=== PATIENT | male | born 1950 | race Caucasian/White ===

== ENCOUNTER 2023-07-29 12:04 | Emergency (ER) | payer SELFPAY ==
[2023-07-29 12:11] VITALS: BP 90/51; PULSE 62; RESP 18; TEMP 36.3; O2SAT 95; BMI 19.1
--- NOTE | 2023-07-29 12:46 | CTR_ITS ---
PROCEDURE INFORMATION: Exam: CT Head Without And With Contrast Exam date and time: 07/29/2023 3:03 PM Age: 72 years old Clinical indication: Pain; Headache; Additional info: Severe headache TECHNIQUE: Imaging protocol: Computed tomography of the head without and with contrast. Radiation optimization: All CT scans at this facility use at least one of these dose optimization techniques: automated exposure control; mA and/or kV adjustment per patient size (includes targeted exams where dose is matched to clinical indication); or iterative reconstruction. Contrast material: OMNI 350; Contrast volume: 100 ml; Contrast route: INTRAVENOUS (IV); COMPARISON: CT neck w con* [id number] 07/29/2023 3:03 PM RADIATION DOSE METRICS: Total DLP (mGy-cm): 2047 FINDINGS: Brain: No evidence of intra-axial or extra-axial hemorrhage. No evidence of abnormal enhancement to suggest mass. No mass effect or midline shift. Sharma-white differentiation is maintained. Basilar cisterns are patent. The vessels of the clhewa-hv-Kicgcm are grossly patent. origin of the right ECONOMIC HISTORIAN. Dural venous sinuses are patent. Cerebral ventricles: No hydrocephalus. Paranasal sinuses: Paranasal sinuses are well aerated. Mastoid air cells: The mastoids and middle ears are clear. Bones/joints: No evidence of acute fracture. Calvarium is intact. Soft tissues: No gross soft tissue abnormality. CT/CT head wo/w con [id number] IMPRESSION: 1. No acute intracranial abnormality.
--- NOTE | 2023-07-29 12:46 | CTR_ITS ---
PROCEDURE INFORMATION: Exam: CT Neck With Contrast Exam date and time: 07/29/2023 3:03 PM Age: 72 years old Clinical indication: Neck pain; Additional info: Swollen mass TECHNIQUE: Imaging protocol: Computed tomography of the neck with contrast. Radiation optimization: All CT scans at this facility use at least one of these dose optimization techniques: automated exposure control; mA and/or kV adjustment per patient size (includes targeted exams where dose is matched to clinical indication); or iterative reconstruction. Contrast material: OMNI 350; Contrast volume: 100 ml; Contrast route: INTRAVENOUS (IV); COMPARISON: CT head wo/w con [id number] 07/29/2023 3:03 PM RADIATION DOSE METRICS: Total DLP (mGy-cm): 240 FINDINGS: Pharynx: The nasopharynx, oropharynx and hypopharynx are patent. Larynx: The aryepiglottic folds and glottis are grossly unremarkable. There is mild rightward deviation of the larynx secondary to the large infiltrative neck mass on the left. Prevertebral and retropharyngeal spaces: No evidence of fluid collection. There is suspected extension of the neck mass towards the midline into the prevertebral soft tissues. Salivary glands: There are large hyperenhancing pathologic periparotid/submandibular nodes on the right measuring up to 3 cm. Additional pathologic hyperenhancing intraparotid nodes on the left measuring up to 14 mm. Submandibular glands are grossly unremarkable. Thyroid: Left-sided thyroid nodules measuring up to 14 mm. Lymph nodes: There is pathologic cervical chain adenopathy. Large periparotid/submandibular nodes on the right. Trachea: The visualized upper airway is patent. Lungs: Moderate-severe biapical emphysematous changes. Bones/joints: No evidence of acute fracture or subluxation of the cervical spine. Vasculature: The origins of the great vessels are patent. The visualized aortic arch is unremarkable. The visualized carotid and vertebral arteries are grossly patent. 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 The right internal jugular vein is patent. Soft tissues: There is a large infiltrative soft tissue neck mass on the left measuring approximately 6 cm craniocaudal by 8 cm AP by 4 cm transverse encasing the common carotid artery on the left. There is diffuse superficial soft tissue edema, presumably related to occlusion of the left IJ. CT/CT neck w con* [id number] IMPRESSION: 1. 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 ENT evaluation is recommended. Consider follow-up MRI of the neck with/without contrast. 2. 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 3. Rightward deviation of the larynx. No discrete glottic mass. The findings were verbally communicated by telephone with BRENDA Pan at 4:44 PM HAZMAT CDL A DRIVER on 07/29/2023. The findings were acknowledged and understood.
[2023-07-29 13:03] LABS: Basophils % 0.4 %; Eosinophils # 0.1 10^3/uL (0.0-0.8); Eosinophils % 0.7 %; Hematocrit 51.3 % (37-53); Lymphocytes # 1.4 10^3/uL (0.8-4.8); Lymphocytes % 14.1 %; Mean Corpuscular HGB Conc 34.5 g/dL (30-55); Mean Corpuscular Hemoglobin 31.5 pg (27-33); Mean Corpuscular Volume 91.3 fl (82-101); Mean Platelet Volume 9.2 fL (7.4-10.4); Monocytes # 0.7 10^3/uL (0.2-0.9); Monocytes % 6.9 %; Neutrophils # 7.89 10^3/uL (1.8-7.7); Neutrophils % 77.6 %; Nucleated Red Blood Cells % 0 %; Platelet Count 191 10^3/cmm (157-399); Red Blood Count 5.62 10^6/uL (3.85-5.65); Red Cell Distribution Width 13.2 % (12.1-15.1); White Blood Count 10.16 10^3/uL (3.29-11.43)
[2023-07-29 13:19] VITALS: BP 117/63; PULSE 66; O2SAT 95
[2023-07-29 14:00] VITALS: BP 110/63; PULSE 71; O2SAT 95
--- NOTE | 2023-07-29 14:00 | PC.PHAR ---
PT STATES TAKES NO PRESCRIPTION MEDICATIONS-PT STATES NORMALLY DOESNT TAKE ASPIRIN 325MG BUT STATES THE LAST FEW DAYS HE HAS BEEN HAVING TO TAKE 2 TABS AT [facility]-
[2023-07-29] MEDS: HYDROcodone-acetaminophen 5-325 mg Tablet 1 TAB PO (14:13)
[2023-07-29 14:20] LABS: Alanine Aminotransferase 13 U/L (0-41); Albumin Level 4.1 g/dL (3.5-5.2); Alkaline Phosphatase 79 U/L (40-130); Anion Gap 17.2 (5-19); Aspartate Amino Transferase 18 U/L (0-40); Blood Urea Nitrogen 18 mg/dL (8-23); Calcium 9.6 mg/dL (8.5-10.5); Carbon Dioxide 27 mmol/L (22-29); Chloride 103 mmol/L (98-107); Globulin 2.8 g/dL (1.3-4.6); Glucose 107 mg/dL (65-115); Osmolality Calculated 298 mOsm/kg (285-295); Potassium 4.2 mmol/L (3.5-5.1); Sodium 143 mmol/L (136-145); Total Bilirubin 0.5 mg/dL (0.15-1.2); Total Protein 6.9 g/dL (6.6-8.7)
--- NOTE | 2023-07-29 14:24 | ED_ITS ---
HPI - Headache 2 General: Chief Complaint: Headache Stated Complaint: abd pain, headache Time Seen by Provider: 07/29/23 12:16 History of Present Illness: 72-year-old male presents emergency depa rtment stating that he has a large goiter on his neck. He states he is treated his goiter naturally and has not seen a doctor for this. He states that approximately 2 months ago the size of the goiter has increased. He also states that he has had several lymph nodes enlarged and he has erased them out. Patient states that he does have a headache on the left side of his head that he states is a throbbing headache type pain and is a 10 out of 10. He denies known injury or trauma. He states that yesterday he had a headache and was able to put pressure on the right anabaptist and it relieved that area of pain. He does have a nonhealing wound to his left neck area that he states he uses iodine to heal. 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 Review of Systems 2 General: Reports: 10 or more systems reviewed and unremarkable except in HPI and below ENMT: Reports: other (Large goiter to the anterior aspect of the neck. He does have anterior cer) Neuro: Reports: headache(s) Physical Exam 2 Narrative: EXAM NARRATIVE: Constitutional: the patient appears well nourished and with normal development. Vital signs reviewed as documented. GCS 15, alert and oriented x 4-person, place, time and situation. HENMT: Normocephalic, atraumatic. External ears normal appearance without drainage. Nose without drainage, normal appearance. Mucus membranes moist. Neck is supple, No jugular venous distension, trachea is midline, no appreciable carotid bruits. Anterior cervical chain lymphadenopathy noted bilaterally. There is a large goiter to the anterior aspect of the neck and the left side of the neck has a healing open wound. No meningeal signs. Flexion, extension and lateral rotation is without pain. No meningeal signs, no Kernig's, no Brudzinski Eyes: Pupils are equal, round, reactive to light and accommodation. No scleral icterus. Extra-ocular movement are intact. Thorax is symmetrical and with equal rise and fall with respirations. Resp: Lungs are clear to auscultation. No wheezes, rales, crackles or ronchi at present. Cardio: Regular rate and rhythm. Positive S1, S2. No appreciable murmurs, rubs or gallops. GI: Abdominal exam reveals normal bowel sounds to all quadrants. No organomegaly. No obvious palpable masses noted. No hepatomegally appreciated. Soft, non-tender to palpation. Extremity: Extremities are non-edematous and both femoral and pedal pulses are 2+ and equal bilaterally. Moves all extremities well, sensation in all extremities. Neuro: Alert and oriented x4, person, place, time and situation. Cranial nerves II through XII are grossly intact, there is no focal neurological deficits that I can appreciate at present. Motor strength in the upper and lower extremities are equal and bilateral 5/5. Psych: Cooperative, calm, normal thought process, appropriate judgment. Skin: No lesions, rashes. No gross abnormalities noted. Back: Symmetrical, no obvious deformity, No CVA tenderness Course 2 ED course: The patient stated several times that he does not like to see physicians. He states that he normally treats himself with natural remedies. He states he has been treating himself and does not feel that he needs to go to see a physician. I discussed the CT scan findings of his head and neck with both the patient and his son. The son did ask if the area in the patient's neck was cancerous and I advised both the patient and his son that it would need to be biopsied and sent to pathology and that would require seeing a surgeon to have that completed. The patient states that he lives approximately 2 hours away and that he might attempt to find someone closer to where he lives. I discussed with the patient and his son how important additional evaluation was and the patient stated that he would follow-up with someone closer to his home. I did advise him that this large mass could potentially close off his airway or cause vessels to rupture and could potentially cause him an untimely demise. The patient verbalized understanding of all information provided and stated he would return if needed. I did provide the patient with both the general surgeons contact information as well as a primary care provider. I did discuss with the patient and the patient's son the importance of follow-up and did provide the general surgeons contact information, as well as primary care providers contact information. I discussed the importance of medication compliance and advised the patient that I would respect his wishes to not be admitted to the hospital and to be discharged and requested again that he follow-up immediately for additional evaluation treatment and care. Vital Signs: Vital signs: Vital Signs Temperature 97.3 F L 07/29/23 12:11 Pulse Rate 64 07/29/23 16:14 Respiratory Rate 18 07/29/23 12:11 Blood Pressure 127/78 07/29/23 16:14 Pulse Oximetry 94 07/29/23 16:14 Oxygen Delivery Me thod Room Air 07/29/23 14:00 MDM - Headache Medical Decision Making 72-year-old male presents with complaints of a headache he does have a large goiter and initially was not interested in receiving any additional care besides pain medication. I did discuss with him the importance of a thorough evaluation that would allow for appropriate treatment and the patient did allow me to obtain IV access and obtain a CBC and CMP as well as a CT scan of his head and neck. Lab Data I reviewed the patient's lab results. 07/29/23 12:50 07/29/23 12:[address] 07/29/23 12:46 IMPRESSION: 1. No acute intracranial abnormality. Neck CT 07/29/23 12:46 IMPRESSION: 1. 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 ENT evaluation is recommended. Consider follow-up MRI of the neck with/without contrast. 2. 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 3. Rightward deviation of the larynx. No discrete glottic mass. The findings were verbally communicated by telephone with GIANCARLO Pan at 4:44 PM GROUP CARE WORKER on 07/29/2023. The findings were acknowledged and understood. Laboratory Results WBC 10.16 10^3/uL (3.29-11.43) 07/29/23 12:50 RBC 5.62 10^6/uL (3.85-5.65) 07/29/23 12:50 Hgb 17.70 g/dL (11.27-16.99) H 07/29/23 12:50 Hct 51.3 % (37-53) 07/29/23 12:50 MCV 91.3 fl (82-101) 07/29/23 12:50 MCH 31.5 pg (27-33) 07/29/23 12:50 MCHC 34.5 g/dL (30-55) 07/29/23 12:50 RDW 13.2 % (12.1-15.1) 07/29/23 12:50 Plt Count 191 10^3/cmm (157-399) 07/29/23 12:50 MPV 9.2 fL (7.4-10.4) 07/29/23 12:50 Neut % (Auto) 77.6 % 07/29/23 12:50 Lymph % (Auto) 14.1 % 07/29/23 12:50 [place] % (Auto) 6.9 % 07/29/23 12:50 Eos % (Auto) 0.7 % 07/29/23 12:50 Baso % (Auto) 0.4 % 07/29/23 12:50 Neut # (Auto) 7.89 10^3/uL (1.8-7.7) H 07/29/23 12:50 Lymph # (Auto) 1.4 10^3/uL (0.8-4.8) 07/29/23 12:50 [place] # (Auto) 0.7 10^3/uL (0.2-0.9) 07/29/23 12:50 Eos # (Auto) 0.1 10^3/uL (0.0-0.8) 07/29/23 12:50 Baso # (Auto) 0.0 10^3/uL (0.0-0.1) 07/29/23 12:50 Nucleated RBC % (auto) 0 % 07/29/23 12:50 Nucleated RBCs # 0.0 /100WBC 07/29/23 12:50 PT 14.10 SECONDS (12.1-14.9) 07/29/23 13:58 INR 1.06 (0.8-1.2) 07/29/23 13:58 Sodium 143 mmol/L (136-145) 07/29/23 12:50 Potassium 4.2 mmol/L (3.5-5.1) 07/29/23 12:50 Chloride 103 mmol/L (98-107) 07/29/23 12:50 Carbon Dioxide 27 mmol/L (22-29) 07/29/23 12:50 Anion Gap 17.2 (5-19) 07/29/23 12:50 BUN 18 mg/dL (8-23) 07/29/23 12:50 Creatinine 0.9 mg/dL (0.7-1.2) 07/29/23 12:50 GFR Calculation Not Reportable 07/29/23 12:50 Glucose 107 mg/dL (65-115) 07/29/23 12:50 Calculated Osmolality 298 mOsm/kg (285-295) H 07/29/23 12:50 Calcium 9.6 mg/dL (8.5-10.5) 07/29/23 12:50 Total Bilirubin 0.5 mg/dL (0.15-1.2) 07/29/23 12:50 AST 18 U/L (0-40) 07/29/23 12:50 ALT 13 U/L (0-41) 07/29/23 12:50 Alkaline Phosphatase 79 U/L (40-130) 07/29/23 12:50 Total Protein 6.9 g/dL (6.6-8.7) 07/29/23 12:50 Albumin 4.1 g/dL (3.5-5.2) 07/29/23 12:50 Globulin 2.8 g/dL (1.3-4.6) 07/29/23 12:50 All radiology interpretation(s) finalized by discharge Discharge Plan Discharge Patient Disposition: Home Clinical Impression: Goiter diffuse Headache Qualifiers: Headache type: tension-type Headache chronicity pattern: acute headache I ntractability: not intractable Qualified Code(s): G44.209 - Tension-type headache, unspecified, not intractable Wound, open, neck Qualifiers: Encounter type: initial encounter Qualified Code(s): S11.90XA - Unspecified open wound of unspecified part of neck, initial encounter Condition: Stable Prescriptions: New cephalexin 500 mg capsule 500 mg PO BID 7 Days Qty: 14 0RF naproxen 500 mg tablet 500 mg PO Q12H PRN (Reason: pain) Qty: 20 0RF No Action aspirin 325 mg Tablet 650 mg PO BEDTIME Flonase 50 mcg/actuation [place],Suspension 1 - 2 spray INTRANASAL DAILY PRN (Reason: Allergy Symptoms) Discharge Orders: Discharge ED (Routine); Ordered 07/29/23 Ordered By: Giancarlo Alvarado Referrals: Sylvester Rebollar MD [Physician] - (Goiter evaluation) Jakob Lindsay DO [Staff Physician] - Discharge Diet: Advance as tolerated Discharge Activity: Resume usual activity Patient Instructions: Opioid Safety, Pain Management Coding Level of Care Code ED Sterile Preparation Technician for Agatha Ruano
[2023-07-29 14:30] LABS: INR 1.06 (0.8-1.2)
[2023-07-29] MEDS: iohexol 350 mg/mL 500 mL Btl (per mL) IV (14:40)
[2023-07-29 16:14] VITALS: BP 127/78; PULSE 64; O2SAT 94
--- NOTE | 2023-08-03 01:02 | PC.NURSE ---
pt call this nurse took a call from pt. pt wasn't making much sense. he states he is in too much pain and doesn't think he can make the ride to a facility. this nurse repeated multiple times that i needed to know what his question was and we could not give advice over the phone. son stated he understood what i was saying and he would take care of him.
== END 2023-07-29 16:15 | disposition home or self-care (01) ==
PROVIDERS: Emergency Provider Internal Medicine
DX: E04.8 Other specified nontoxic goiter (principal); G44.209 Tension-type headache, unspecified, not intractable; S11.90XA Unspecified open wound of unspecified part of neck, initial encounter; Z79.82 Long term (current) use of aspirin; X58.XXXA Exposure to other specified factors, initial encounter
CPT/HCPCS: 36415; 70470; 70491; 80053; 85025; 85610; 99285; J2405; Q9967